=== PATIENT | male | born 1995 | race Caucasian/White ===

== ENCOUNTER 2016-08-24 17:13 | Emergency (ER) | payer MEDICARE, OTHER | END 2016-08-24 20:15 | disposition home or self-care (01) | LOC: ER 17:13 | DX: N39.0 Urinary tract infection, site not specified (principal); D72.829 Elevated white blood cell count, unspecified; I12.9 Hypertensive chronic kidney disease with stage 1 through stage 4 chronic kidney disease, or unspecified chronic kidney disease; N18.3 Chronic kidney disease, stage 3 (moderate); Z79.899 Other long term (current) drug therapy; Z91.040 Latex allergy status | CPT/HCPCS: 36415; 96361; 96365 ==